=== PATIENT | female | born 1995 | race Caucasian/White ===

== ENCOUNTER 2021-12-05 11:22 | Emergency (ER) | payer OTHER ==
[~2021-12-05] VITALS: Ht 160 cm; Wt 83.0 kg
[2021-12-05] MEDS ORDERED: PROZAC40 MG PO (12:48)
[2021-12-05] MEDS ORDERED: AMOX-CLAV 875-1 EACH PO (16:00)
[2021-12-05] MEDS ORDERED: MEDROLPACK PO (16:00)
== END 2021-12-05 16:10 | disposition home or self-care (01) ==
LOC: ER 11:22
DX: H92.02 Otalgia, left ear (principal); Z20.822 Contact with and (suspected) exposure to COVID-19

== ENCOUNTER 2021-12-09 17:09 | Emergency (ER) | payer OTHER ==
[~2021-12-09] VITALS: Ht 160 cm; Wt 83.0 kg
[~2021-12-09 17:09] MED LIST: AMOX-CLAV 875-1 EACH PO; MEDROLPACK PO; PROZAC40 MG PO
== END 2021-12-09 19:44 | disposition home or self-care (01) ==
LOC: ER 17:09
DX: H92.01 Otalgia, right ear (principal); Z88.6 Allergy status to analgesic agent; Z91.013 Allergy to seafood